=== PATIENT | female | born 1935 | race African-American/Black ===

== ENCOUNTER 2018-08-02 09:31 | Emergency (ER) | payer MEDICARE, OTHER ==
[~2018-08-02] VITALS: Ht 170.2 cm; Wt 77.1 kg
[~2018-08-02 09:31] MED LIST: AMOX250C PO; ASPI-482 PO; ATEN50TA PO; CHOL500021 PO; GLIM2TAB PO; Isosorbide Mononitrate PO; LISI-334 PO; NIFE60TA16 PO; OMEG300C PO; POTA20TA12 PO; PSYL0.5215 PO
[2018-08-02] MEDS ORDERED: IV NORMAL SALINE 1000ML BAG 1,000 ML IV SCH (10:02)
--- NOTE | 2018-08-02 10:20 | PHYS DOC ---
Past Medical History Past Medical History: A-Fib, Cancer, Hypertension, FL, Other Additional Past Medical Histor: BREAST CA,LYMPHEDEMA RIGHT ARM Past Surgical History: Pacemaker, Other Additional Past Surgical Histo: cardiac cath,R MASTECTOMY Additional Information: Denies smoking Alcohol Use: None Drug Use: None Adult General Chief Complaint Chief Complaint: near-syncope and cold symptums [facility] HPI Patient is a 83 year old female who brought in by EMS with complaining of near syncope. Patient states she has had cold symptoms for the last 5 days and this morning had a near-syncope. Patient complaining of cough, with subjective fever , hurting all over, nasal congestion, decrease of appetite and generalized weakness that gradually getting worse. Patient stated she had productive cough with clear sputum and shortness of breath. Patient states she almost passing out this morning without having chest pain, focal neuro deficit, blurred vision. Review of Systems Review of Systems Constitutional: Denies fever or chills [] Eyes: Denies change in visual acuity, redness, or eye pain [] HENT: Denies nasal congestion or sore throat [] Respiratory: Denies cough or shortness of breath [] Cardiovascular: No additional information not addressed in HPI [] GI: Denies abdominal pain, nausea, vomiting, bloody stools or diarrhea [] : Denies dysuria or hematuria [] Musculoskeletal: Denies back pain or joint pain [] Integument: Denies rash or skin lesions [] Neurologic: Denies headache, focal weakness or sensory changes [] Endocrine: Denies polyuria or polydipsia [] All other systems were reviewed and found to be within normal limits, except as documented in this note. Current Medications Current Medications Current Medications Medications (Trade) Dose Ordered Sig/Jeramy Start Time Stop Time Status Last Admin Dose Admin Sodium Chloride 1,000 ml @ 1,000 mls/hr Q1H 08/02/18 10:02 08/02/18 11:01 DC 08/02/18 10:25 1,000 MLS/HR Allergies Allergies Allergies Coded Allergies Type Severity Reaction Last Updated Verified No Known Drug Allergies 10/19/14 No Physical Exam Physical Exam Constitutional: Well developed, well nourished, no acute distress, non-toxic appearance. [] HENT: Normocephalic, atraumatic, bilateral external ears normal, oropharynx moist, no oral exudates, nose normal. [] Eyes: PERRLA, EOMI, conjunctiva normal, no discharge. [] Neck: Normal range of motion, no tenderness, supple, no stridor. [] Cardiovascular:Heart rate regular rhythm, no murmur [] Lungs & Thorax: Bilateral breath sounds clear to auscultation [] Abdomen: Bowel sounds normal, soft, no tenderness, no masses, no pulsatile masses. [] Skin: Warm, dry, no erythema, no rash. [] Back: No tenderness, no CVA tenderness. [] Extremities: No tenderness, no cyanosis, no clubbing, ROM intact, no edema. [] Neurologic: Alert and oriented X 3, normal motor function, normal sensory function, no focal deficits noted. [] Psychologic: Affect normal, judgement normal, mood normal. [] Current Patient Data Vital Signs Vital Signs Date Time Temp Pulse Resp B/P (MAP) Pulse Ox O2 Delivery O2 Flow Rate FiO2 08/02/18 12:24 60 147/68 (94) 95 Room Air 08/02/18 11:54 2.0 08/02/18 09:31 98.7 20 98.7 Lab Values Laboratory Tests Test 08/02/18 10:04 08/02/18 10:45 08/02/18 10:46 Influenza Type A Antigen Positive (NEGATIVE) Influenza Type B Antigen Negative (NEGATIVE) Troponin I Quantitative 0.023 ng/mL (0.000-0.055) White Blood Count 6.1 x10^3/uL (4.0-11.0) Red Blood Count 4.36 x10^6/uL (3.50-5.40) Hemoglobin 13.0 g/dL (12.0-15.5) Hematocrit 40.2 % (36.0-47.0) Mean Corpuscular Volume 92 fL (79-100) Mean Corpuscular Hemoglobin 30 pg (25-35) Mean Corpuscular Hemoglobin Concent 32 g/dL (31-37) Red Cell Distribution Width 14.5 % (11.5-14.5) Platelet Count 153 x10^3/uL (140-400) Neutrophils (%) (Auto) 86 % (31-73) H Lymphocytes (%) (Auto) 9 % (24-48) L Monocytes (%) (Auto) 4 % (0-9) Eosinophils (%) (Auto) 0 % (0-3) Basophils (%) (Auto) 0 % (0-3) Neutrophils # (Auto) 5.3 x10^3uL (1.8-7.7) Lymphocytes # (Auto) 0.6 x10^3/uL (1.0-4.8) L Monocytes # (Auto) 0.3 x10^3/uL (0.0-1.1) Eosinophils # (Auto) 0.0 x10^3/uL (0.0-0.7) Basophils # (Auto) 0.0 x10^3/uL (0.0-0.2) Segmented Neutrophils % 69 % (35-66) H Band Neutrophils % 19 % (0-9) H Lymphocytes % 9 % (24-48) L Monocytes % 3 % (0-10) Platelet Estimate Adequate (ADEQUATE) Prothrombin Time 12.3 SEC (11.7-14.0) Prothrombin Time INR 0.9 (0.8-1.1) Sodium Level 135 mmol/L (136-145) L Potassium Level 3.7 mmol/L (3.5-5.1) Chloride Level 99 mmol/L (98-107) Carbon Dioxide Level 25 mmol/L (21-32) Anion Gap 11 (6-14) Blood Urea Nitrogen 16 mg/dL (7-20) Creatinine 1.1 mg/dL (0.6-1.0) H Estimated GFR (Cockcroft-Gault) 57.5 BUN/Creatinine Ratio 15 (6-20) Glucose Level 150 mg/dL (70-99) H Lactic Acid Level 1.5 mmol/L (0.4-2.0) Calcium Level 10.0 mg/dL (8.5-10.1) Total Bilirubin 0.4 mg/dL (0.2-1.0) Aspartate Amino Transferase (AST) 45 U/L (15-37) H Alanine Aminotransferase (ALT) 31 U/L (14-59) Alkaline Phosphatase 102 U/L (46-116) Total Protein 8.9 g/dL (6.4-8.2) H Albumin 3.8 g/dL (3.4-5.0) Albumin/Globulin Ratio 0.7 (1.0-1.7) L Lipase 83 U/L (73-393) Laboratory Tests 08/02/18 10:46 Laboratory Tests 08/02/18 10:46 EKG EKG EKG interpreted by me. EKG at 1024 showed normal sinus rhythm at rate of 64, prolonged RI interval at 242, abnormal left axis deviation, nonspecific intraventricular block, poor R-wave progress in anteroseptal leads, no acute ST and T-wave abnormalities. Radiology/Procedures Radiology/Procedures [][address] [id number] [place] [address] IMAGING REPORT Signed PATIENT: MARILYN MATTHEW ACCOUNT: [id number] : 1935 LOCATION: ER AGE: 83 SEX: F EXAM STATUS: REG ER ORD. PHYSICIAN: GIORGIO KEARNS MD REASON: near syncope PROCEDURE: CHEST PA & LATERAL Examination: CHEST PA LATERAL History: CHEST PAIN, COUGH X 5 DAYS, SOA, MALAISE Comparison/Correlation: 09/29/2014 portable chest x-ray exam Findings: PA and lateral views of chest were obtained. Dual-lead left-sided pacemaker is present. Heart size and pulmonary vasculature are normal. No pneumothorax. No infiltrate or significant pleural effusion. Evaluation of the lateral view is limited due to patient rotation. Sclerotic lesion involving the proximal left humeral metaphysis is unchanged. Impression: No focal infiltrate. Electronically signed by: Fernando Gómez MD (08/02/2018 10:25 AM) [facility] DICTATED and SIGNED BY: FERNANDO GÓMEZ MD DATE: 08/02/[address] [place], [place] [id number] [place] [address] IMAGING REPORT Signed PATIENT: MARILYN MATTHEW ACCOUNT: [id number] : 1935 LOCATION: ER AGE: 83 SEX: F EXAM STATUS: REG ER ORD. PHYSICIAN: GIORGIO KEARNS MD REASON: near-syncope PROCEDURE: CT HEAD WO CONTRAST CT HEAD INDICATION: NEAR SYNCOPE COMPARISON: None Available. Exposure: One or more of the following individualized dose reduction techniques were utilized for this examination: 1. Automated exposure control 2. Adjustment of the mA and/or kV according to patient size 3. Use of iterative reconstruction technique TECHNIQUE: 5 mm contiguous axial images were obtained from the skull base to the vertex in both bone and soft tissue algorithm. FINDINGS: Mild bilateral periventricular white matter hypodensities likely chronic small vessel ischemic disease. No evidence of acute intracranial hemorrhage. No extra-axial fluid collections. No mass effect or midline shift. Ventricular size is appropriate. Basal cisterns are patent. No fractures identified.Price-white differentiation is preserved.Globes and orbits are within normal limits. Paranasal sinuses and mastoid air cells are clear. IMPRESSION: No acute intracranial findings. Electronically signed by: Derek Cornelius MD (08/02/2018 11:19 AM) [place] [id number] DICTATED and SIGNED BY: DEREK CORNELIUS MD DATE: 08/02/18 1117 Course & Med Decision Making Course & Med Decision Making Pertinent Labs and Imaging studies reviewed. (See chart for details) Evaluation of patient in ER showed 83-year-old patient with complaining of cold and flulike symptom for 5 days and near syncope today. Patient instructed 99.5 in ER without hypertension, tachycardia, focal neuro deficit or confusion. Patient treated with IV fluid. Labs showed positive for a without elevation of lactic acid or leukocytosis. UA did not show infiltration. Patient felt better after treatment and feels comfortable to go home. Plan discharge patient home to diagnose of influenza A and near syncope. Prescription for Tussionex was given and patient instructed to follow up with her primary care physician and return to ER if not getting better. Dragon Disclaimer Dragon Disclaimer This electronic medical record was generated, in whole or in part, using a voice recognition dictation system. Departure Departure Impression: Primary Impression: Influenza A Additional Impressions: Near syncope Generalized weakness Dehydration Disposition: 01 HOME, SELF-CARE (@1210) Condition: IMPROVED Referrals: RUSH GONZALES MD (PCP) Patient Instructions: Dehydration, Adult, Fever, Adult, Influenza A (H1N1), Near-Syncope Additional Instructions: Drink plenty of liquids Follow-up with your primary care physician in 2-3 days Return to ER if not getting better Scripts Hydrocodone/Chlorphen P-Stirex (Tussionex Pennkinetic Susp) 115 Ml Pinky.er.12h 5 ML PO BID for cough and congestion, #120 ML Prov: GIORGIO KEARNS MD 08/02/18 Problem Qualifiers GIROGIO KEARNS MD Aug 02, 2018 10:19
--- NOTE | 2018-08-02 10:30 | RAD ---
Examination: CHEST PA LATERAL History: CHEST PAIN, COUGH X 5 DAYS, SOA, MALAISE Comparison/Correlation: 09/29/2014 portable chest x-ray exam Findings: PA and lateral views of chest were obtained. Dual-lead left-sided pacemaker is present. Heart size and pulmonary vasculature are normal. No pneumothorax. No infiltrate or significant pleural effusion. Evaluation of the lateral view is limited due to patient rotation. Sclerotic lesion involving the proximal left humeral metaphysis is unchanged. Impression: No focal infiltrate. Electronically signed by: Fernando Lau MD (08/02/2018 10:25 AM) [facility]
[2018-08-02 10:57] LABS: INFLUENZA A PATIENT POSITIVE (NEGATIVE); INFLUENZA B PATIENT NEGATIVE (NEGATIVE)
[2018-08-02 11:01] LABS: BASO % 0 % (0-3); EOS % 0 % (0-3); HEMATOCRIT 40.2 % (36.0-47.0); LYMPH # 0.6 x10^3/uL (1.0-4.8); LYMPH % 9 % (24-48); MEAN CORPUSCULAR HEMOGLOBIN 30 pg (25-35); MEAN CORPUSCULAR HGB CONC 32 g/dL (31-37); MEAN CORPUSCULAR VOLUME 92 fL (79-100); MONO # 0.3 x10^3/uL (0.0-1.1); MONO % 4 % (0-9); NEUT # 5.3 x10^3uL (1.8-7.7); NEUT % 86 % (31-73); PLATELET COUNT 153 x10^3/uL (140-400); RED BLOOD COUNT 4.36 x10^6/uL (3.50-5.40); RED CELL DISTRIBUTION WIDTH 14.5 % (11.5-14.5); WHITE BLOOD COUNT 6.1 x10^3/uL (4.0-11.0)
[2018-08-02 11:10] LABS: CREATININE 1.1 mg/dL (0.6-1.0); GFR 57.5; POTASSIUM 3.7 mmol/L (3.5-5.1)
[2018-08-02 11:16] LABS: PROTHROMBIN TIME PATIENT 12.3 SEC (11.7-14.0)
--- NOTE | 2018-08-02 11:24 | RAD ---
CT HEAD INDICATION: NEAR SYNCOPE COMPARISON: None Available. Exposure: One or more of the following individualized dose reduction techniques were utilized for this examination: 1. Automated exposure control 2. Adjustment of the mA and/or kV according to patient size 3. Use of iterative reconstruction technique TECHNIQUE: 5 mm contiguous axial images were obtained from the skull base to the vertex in both bone and soft tissue algorithm. FINDINGS: Mild bilateral periventricular white matter hypodensities likely chronic small vessel ischemic disease. No evidence of acute intracranial hemorrhage. No extra-axial fluid collections. No mass effect or midline shift. Ventricular size is appropriate. Basal cisterns are patent. No fractures identified.Price-white differentiation is preserved.Globes and orbits are within normal limits. Paranasal sinuses and mastoid air cells are clear. IMPRESSION: No acute intracranial findings. Electronically signed by: Derek Cornelius MD (08/02/2018 11:19 AM) [place] [id number]
[2018-08-02 11:29] LABS: ALBUMIN 3.8 g/dL (3.4-5.0); ALBUMIN/GLOBULIN RATIO 0.7 (1.0-1.7); TOTAL BILIRUBIN 0.4 mg/dL (0.2-1.0); TOTAL PROTEIN 8.9 g/dL (6.4-8.2)
[2018-08-02] MEDS ORDERED: HYDR115S2 PO (12:14)
[2018-08-02 12:24] VITALS: BP 147/68
[2018-08-02 12:24] LABS: % BANDS 19 % (0-9); % LYMPHS 9 % (24-48); % MONOS 3 % (0-10); % SEGS 69 % (35-66); PLT ESTIMATE ADEQUATE (ADEQUATE)
--- NOTE | 2018-08-02 13:56 | EKG ---
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
== END 2018-08-02 13:44 | disposition home or self-care (01) ==
LOC: ER 09:31
DX: R55 Syncope and collapse (principal); E86.0 Dehydration; J10.1 Influenza due to other identified influenza virus with other respiratory manifestations; R53.1 Weakness; I10 Essential (primary) hypertension; I25.2 Old myocardial infarction; I48.91 Unspecified atrial fibrillation; Z95.0 Presence of cardiac pacemaker
CPT/HCPCS: 36415; 70450; 71046; 80053; 83605; 83690; 84484; 85007; 85025; 85610; 87040; 87804; 93005; 96360; 96361; 99284; J7030

== ENCOUNTER → 2018-11-25 | Outpatient (CLI) | payer MEDICARE, OTHER ==
[~2018-11-25] MED LIST changes: +HYDR115S2 PO
--- NOTE | 2018-11-25 13:56 | CARD ---
MR#: [id number] Date of Study: 11/25/2018 Ordering Physician: STACEY FERRER, Referring Physician: STACEY FERRER, Tech: Christine Dye CASSIE APPROVED REPORT EXAM: Two-dimensional and M-mode echocardiogram with Doppler and color Doppler. Other Information Quality : GoodHR: 60bpm Rhythm : Pacemaker INDICATION Murmur 2D DIMENSIONS RVDd3.0 (2.9-3.5cm)Left Atrium(2D)3.6 (1.6-4.0cm) IVSd1.6 (0.7-1.1cm)Aortic Root(2D)2.9 (2.0-3.7cm) LVDd4.3 (3.9-5.9cm)LVOT Diameter2.1 (1.8-2.4cm) PWd1.0 (0.7-1.1cm)LVDs2.7 (2.5-4.0cm) FS (%) 38.3 %SV57.4 ml LVEF(%)68.9 (>50%) M-Mode DIMENSIONS Left Atrium(MM)4.06 (2.5-4.0cm)Aortic Root3.02 (2.2-3.7cm) Aortic Valve AoV Peak Curt.236.4cm/sAoV VTI55.2cm AO Peak GR.22.4mmHgLVOT Peak Curt.93.2cm/s AO Mean GR.13mmHgAVA (VMAX)1.35cm2 JOSE (VTI)1.10ac1ZA P 1/2 Htiq183kp Mitral Valve MV E Xinsaqgo19.1cm/sMV DECEL XDZV826yw MV A Wctiraim995.9cm/sE/A Ratio0.5 MV A Tgpugpmu147hz Pulmonary Valve PV Peak Fgojebhu749.9cm/s Tricuspid Valve TR P. Cwebtsjk693nf/sRAP SVYAHXDQ7ycGh TR Peak Gr.13szTlXSRK91whWd Pulmonary Vein S1 Bwyztftd30.2cm/sD2 Phauhyrd32.0cm/s PVa cqgduhkn46zpvq LEFT VENTRICLE The left ventricle is normal size. There is moderate concentric left ventricular hypertrophy. The lef t ventricular systolic function is normal and the ejection fraction is within normal range. The Eject ion Fraction is 65-70%. There is normal LV segmental wall motion. Transmitral Doppler flow pattern is Grade I-abnormal relaxation pattern. RIGHT VENTRICLE The right ventricle is normal size. There is normal right ventricular wall thickness. The right ventr icular systolic function is normal. Pacer wire noted in RV/RA. ATRIA The left atrium size is normal. The right atrium size is normal. The interatrial septum is intact wit h no evidence for an atrial septal defect or patent foramen ovale as noted on 2-D or Doppler imaging. AORTIC VALVE The aortic valve is moderately calcified. The aortic valve is trileaflet. Doppler and Color Flow reve aled mild aortic regurgitation. There is mild valvular aortic stenosis. Calculated aortic valve area is 1.4 cm2 with maximum pressure gradient of 22 mmHg and mean pressure gradient of 13 mmHg. MITRAL VALVE Mitral annular calcification is mild to moderate. There is no evidence of mitral valve prolapse. Ther e is no mitral valve stenosis. Doppler and Color-flow revealed trace mitral regurgitation. TRICUSPID VALVE The tricuspid valve is normal in structure and function. Doppler and Color Flow revealed mild tricusp id regurgitation. There is mild pulmonary hypertension. The PA pressure was estimated at 33 mmHg. The re is no tricuspid valve prolapse or vegetation. There is no tricuspid valve stenosis. PULMONIC VALVE Doppler and Color Flow revealed mild pulmonic valvular regurgitation. There is no pulmonic valvular s tenosis. GREAT VESSELS The aortic root is normal in size. The ascending aorta is normal in size. The IVC is normal in size a nd collapses >50% with inspiration. PERICARDIAL EFFUSION There is no evidence of significant pericardial effusion. Critical Notification Critical Value: No <Conclusion> The left ventricular systolic function is normal and the ejection fraction is within normal range. Th e Ejection Fraction is 65-70%. There is moderate concentric left ventricular hypertrophy. There is normal LV segmental wall motion. Pacer wire noted in RV/RA. There is mild valvular aortic stenosis. Calculated aortic valve area is 1.4 cm2 with maximum pressur e gradient of 22 mmHg and mean pressure gradient of 13 mmHg. Doppler and Color Flow revealed mild aortic regurgitation. Signed by : Hugo Mayer, Electronically Approved : 11/25/2018 13:55:58
== END | disposition home or self-care (01) ==
LOC: ECHO 12:43
PROVIDERS: ATTEND Internal Medicine Cardiovascular Disease
DX: I08.8 Other rheumatic multiple valve diseases (principal); I27.20 Pulmonary hypertension, unspecified; I11.9 Hypertensive heart disease without heart failure
CPT/HCPCS: 93306

== ENCOUNTER → 2019-08-15 | Outpatient (CLI) | payer MEDICARE, OTHER ==
[~2019-08-15] MED LIST changes: -NIFE60TA16 PO; +NIFE60TA90 PO; +REGADENOSON 0.4 MG/5 ML DISP.SYRIN. IV ONE
--- NOTE | 2019-08-15 13:15 | CARD ---
MR#: [id number] Date of Study: 08/15/2019 Ordering Physician: STACEY FERRER, Referring Physician: STACEY FERRER, Tech: Ana Paula Emerson APPROVED REPORT EXAM: Two-dimensional and M-mode echocardiogram with Doppler and color Doppler. Other Information Quality : GoodHR: 60bpm INDICATION Mitral Valve Disease Surgery/Intervention Pacemaker: Date: 2009 RISK FACTORS Hypertension 2D DIMENSIONS RVDd3.1 (2.9-3.5cm)Left Atrium(2D)3.8 (1.6-4.0cm) IVSd1.3 (0.7-1.1cm)Aortic Root(2D)3.2 (2.0-3.7cm) LVDd4.1 (3.9-5.9cm)LVOT Diameter2.0 (1.8-2.4cm) PWd1.2 (0.7-1.1cm)LVDs2.9 (2.5-4.0cm) FS (%) 29.7 %SV42.5 ml LVEF(%)57.3 (>50%) Aortic Valve AoV Peak Curt.271.3cm/sAoV VTI61.3cm AO Peak GR.29.4mmHgLVOT Peak Curt.99.0cm/s LVOT VTI 23.14cmAO Mean GR.17mmHg JOSE (VMAX)0.16vr4MCZ (VTI)1.17cm2 AI P 1/2 Ivmq588rs Mitral Valve MV E Gztzdfup81.0cm/sMV E Peak Gr.114mmHg MV DECEL FIDA047vnZI A Bthuajib363.2cm/s MV E Mean Gr.2mmHgMV AYP00rm E/A Ratio0.6MVA (PHT)3.39cm2 TDI E/Lateral E'12.4E/Medial E'16.7 Pulmonary Valve PV Peak Qczzimrd32.0cm/sPV Peak Grad.4mmHg Tricuspid Valve TR P. Fmzzrmgx080yz/sRAP ZKUQJWAD2vtCh TR Peak Gr.70jhBqAUAN30xhFg Pulmonary Vein S1 Ucmomksg40.5cm/sD2 Rllqajzp10.4cm/s PVa jjwsoxdx227rzud LEFT VENTRICLE The left ventricle is normal size. There is moderate concentric left ventricular hypertrophy. The lef t ventricular systolic function is normal and the ejection fraction is within normal range. The Eject ion Fraction is 50-55%. There is normal LV segmental wall motion. Transmitral Doppler flow pattern is Grade I-abnormal relaxation pattern. RIGHT VENTRICLE The right ventricle is normal size. There is normal right ventricular wall thickness. The right ventr icular systolic function is normal. ATRIA The left atrium size is normal. The right atrium size is normal. The atrial septum is aneurysmal. AORTIC VALVE The aortic valve is calcified and displays decreased opening. Doppler and Color Flow revealed mild ao rtic regurgitation. Calculated aortic valve area is 1.17 cm2 with maximum pressure gradient of 33 mmH g and mean pressure gradient of 18 mmHg. MITRAL VALVE The mitral valve is thickened but opens well. There is no evidence of mitral valve prolapse. There is no mitral valve stenosis. Doppler and Color-flow revealed trace to mild mitral regurgitation. TRICUSPID VALVE The tricuspid valve is normal in structure and function. Doppler and Color Flow revealed mild tricusp id regurgitation with an estimated PAP of 38 mmHg. There is no tricuspid valve stenosis. PULMONIC VALVE The pulmonic valve is not well visualized. Doppler and Color Flow revealed mild pulmonic valvular reg urgitation. There is no pulmonic valvular stenosis. GREAT VESSELS The aortic root is normal in size. The ascending aorta is normal in size. The IVC is normal in size a nd collapses >50% with inspiration. PERICARDIAL EFFUSION There is no evidence of significant pericardial effusion. Critical Notification Critical Value: No <Conclusion> The left ventricular systolic function is normal and the ejection fraction is within normal range. Th e Ejection Fraction is 50-55%. There is normal LV segmental wall motion. There is moderate concentric left ventricular hypertrophy. Calculated aortic valve area is 1.17 cm2 with maximum pressure gradient of 33 mmHg and mean pressure gradient of 18 mmHg. Doppler and Color Flow revealed mild aortic regurgitation. Doppler and Color Flow revealed mild tricuspid regurgitation with an estimated PAP of 38 mmHg. Signed by : Hugo Mayer, Electronically Approved : 08/15/2019 13:14:54
--- NOTE | 2019-08-15 14:06 | RAD ---
MR#: [id number] Date of Study: 08/15/2019 Ordering Physician: STACEY BOSS, Referring Physician: JULIAN GUEVARA Tech: RT Alexx StokesR) (N) APPROVED REPORT Test Type: Pharmacological Stress Nurse/Tech: Blessing Rivera RN Test Indications: CAD Cardiac History: MIs x3, 1 stent, Heart murmur, HTN, PPM, See EMR. Medications: ASA 81mg, See EMR. Medical History: Breast CA w/Chemo, See EMR. Resting ECG: Paced Resting Heart Rate: 63 bpm Resting Blood Pressure: 164/74mmHg Pretest Chest Pain: No chest pain Nurse/Tech Notes Lungs CTA, Heart tones regular. Consent: The procedure was explained to the patient in lay terms. Informed consent was witnessed. Chase eout was entered into Tasted Menu. History and Stress Test performed by RT Rahel (R) (N) Pharm. Details Pharmacologic stress testing was performed using 0.4mg per 5ml of regadenoson given intravenously ove r 7-10 seconds. Stress Symptoms No chest pain or symptoms. POST EXERCISE Reason for Termination: Infusion complete Max HR: 106 bpm Max Blood Pressure: 158/67mmHg Blood Pressure response to exercise: Normal blood pressure response during stress. Heart Rate response to exercise: WNL Chest Pain: No. Arrhythmia: No. ST Change: No. INTERPRETATION Stress EKG Conclusion: The resting EKG shows an atrially paced rhythm. Stress EKG shows no significant changes from baseline. No EKG evidence of stress-induced ischemia. Imaging Protocol IMAGE PROTOCOL: Rest Tc-99m/stress Tc-99m 1 day Rest: Stress: Viability: Radiopharm.Tc99m SidczxjklOf35i Sestamibi Dose10.8mCi 31.5mCi Duration 15min. 15min. Img Date 08/15/2019 08/15/2019 Img Time 13 13 Inj-Img Uspq79cup. 60min. Rest Admin Site:IV - Left ForearmAdministrator:RT Rahel (R)(N) Stress Admin Site: IV - Left ForearmAdministrator: Radha Medina, RT (R)(N) STRESS DATA End Diast. Vol.76.0mlAv. Heart Rate64.0bpm End Syst. Vol.20.0mlCO Index BSA0.0L/min Myocardial Nnjg172.0gEject. Rjojpgms01.0% Stress Rates Pk. Fill Rate3.29EDV/secLVtime Pk. Fill 255.95msec Pk. Empty Rate3.50ESV/secLVtime Pk. Sjjog025.74msec 3 Pk. Fill0.85EDV/sec Stress Scores Regional WT1.00Summed WT7.00 Regional WM0.00Summed WM0.00 LV Perfusion The stress scans showed no significant defects. The rest scans showed no significant defects. Nuclear imaging showed no reversible ischemia or infarct. Wall Motion Ventricular systolic function is normal with an ejection fraction of greater than 70%. LV Perf. Quant 17 Seg. SSS3.00 17 Seg. SRS1.00 17 Seg. SDS2.00 Stress Defect Extent (% LAD)0.00Rest Defect Extent (% LAD)0.00Rev. Defect Extent (% LAD)0.00 Stress Defect Extent (% LCX) 17.50Rest Defect Extent (% LCX)3.80Rev. Defect Extent (% LCX)8.80 Stress Defect Extent (% RCA)0.00Rest Defect Extent (% RCA)0.00Rev. Defect Extent (% RCA)0.00 Stress Defect Extent (% MAIXMO)4.80Rest Defect Extent (% MAXIMO)1.30Rev. Defect Extent (% MAXIMO)2.60 Conclusion 1. Paced rhythm. 2. Nuclear imaging shows no reversible ischemia or infarct. 3. Left ventricular systolic function is normal with an ejection fraction of greater than 70%. 4. Low risk Lexiscan nuclear stress test. Signed by : Stacey Boss MD Electronically Approved : 08/15/2019 14:06:12
== END | disposition home or self-care (01) ==
LOC: ECHO 08:22
PROVIDERS: ATTEND Internal Medicine Cardiovascular Disease
DX: I08.8 Other rheumatic multiple valve diseases (principal); I25.10 Atherosclerotic heart disease of native coronary artery without angina pectoris
CPT/HCPCS: 78452; 93017; 93306; A9500; J2785

== ENCOUNTER → 2020-04-30 | Outpatient (CLI) | payer MEDICARE, OTHER ==
[2020-04-30] VITALS (10 sets, daily range): BP systolic 153–179; BP diastolic 68–77
[~2020-04-30] VITALS: Ht 170.2 cm; Wt 59.0 kg
[~2020-04-30] MED LIST changes: +BACITRACIN 50,000 UNIT in IV NORMAL SALINE 250ML 250 ML IRR ONE; +LIDOCAINE 2%/EPI 1:100,000 20 ML VIAL. IJ ONE; +LIDOCAINE 2%/EPI 1:100,000 20 ML VIAL. ONE; +MIDAZOLAM HCL/PF 2 MG/2 ML VIAL. IV ONE; +MIDAZOLAM HCL/PF 2 MG/2 ML VIAL. ONE; +NO ANTICOAGULANT THERAPY. MC PRN; -REGADENOSON 0.4 MG/5 ML DISP.SYRIN. IV ONE; +SIMV20TA18 PO; +ceFAZolin SODIUM IV Push 1 GM VIAL. IVP ONE; +fentaNYL PF VIAL 100 MCG/2 ML VIAL IV ONE; +fentaNYL PF VIAL 100 MCG/2 ML VIAL ONE
[2020-04-30 08:11] LABS: HEMATOCRIT 37.9 % (36.0-47.0); HEMOGLOBIN 12.3 g/dL (12.0-15.5); RED BLOOD COUNT 4.17 x10^6/uL (3.50-5.40); RED CELL DISTRIBUTION WIDTH 14.6 % (11.5-14.5)
[2020-04-30 08:26] LABS: PROTHROMBIN TIME PATIENT 12.5 SEC (11.7-14.0)
--- NOTE | 2020-04-30 09:02 | PDOC ---
MODERATE SEDATION ASSESSMENT RISKS/ALTERNATIVES Risks/Alternatives Risks and alternatives of this type of sedation and procedure discussed with: RISK/ALTERNATIVES: Patient H & P ON CHART H & P H & P on chart and reviewed for co-morbid conditions and appropriate labs. H&P ON CHART: Yes STATUS PREG STATUS ASSESSED: N/A MEDS/ALLERGIES REVIEWED Meds/Allergies Reviewed Medications and Allergies including time and route of recently administered narcotics and sedatives. MEDS/ALLERGIES REVIEWED: Yes ASA RATING ASA RATING: II AIRWAY ASSESSMENT Airway Assessment Airway patency, oral function limitations, presence of caps, crowns, dentures, partials, and ability to extend neck assessed. AIRWAY ASSESSMENT: Yes MALLAMPATI SCORE MALLAMPATI SCORE: II PRE-SEDATION ASSESSMENT PRE-SEDATION ASSESSMENT: Yes CHAGO EMERSON MD Apr 30, 2020 09:02
--- NOTE | 2020-04-30 09:15 | PDOC1 ---
History and Physical Visit Information Date of Admission: 04/30/2020 History of Present Illness History of Present Illness Laura David is a pleasant 84-year-old woman who presents to the hospital today for a planned generator change due to BONILLA of her [employer] pacemaker (dual- chamber). The patient currently denies any chest pain, dyspnea, orthopnea or PND. No syncope or palpitations. Cardiac Risk Factors Comments 1. Hypertension 2. Dyslipidemia 3. Diabetes type 2 4. Coronary artery disease status post PCI to left circumflex 5. Mild mitral valve regurgitation 6. Mild aortic stenosis Past Surgical History Comments Prior pacemaker and PCI Current Medications Current Medications Current Medications Bacitracin 99877 unit/Sodium Chloride 250 ml @ 0 mls/hr 1X ONCE IRR ; Start 04/30/20 at 08:30; Stop 04/30/20 at 08:34; Status DC Cefazolin Sodium (Ancef) 1 gm 1X ONCE IVP ; Start 04/30/20 at 08:30; Stop 04/30/20 at 08:34; Status DC Cefazolin Sodium (Ancef) 1 gm STK-MED ONCE IVP ; Start 04/30/20 at 08:50; Stop 04/30/20 at 08:50; Status DC Fentanyl Citrate (Fentanyl 2ml Vial) 100 mcg 1X ONCE IV ; Start 04/30/20 at 08:30; Stop 04/30/20 at 08:34; Status DC Fentanyl Citrate (Fentanyl 2ml Vial) 100 mcg STK-MED ONCE .ROUTE ; Start 04/30/20 at 08:49; Stop 04/30/20 at 08:49; Status DC Lidocaine/ Epinephrine (LIDOCAINE 2%-EPI 1:100,000 multi-dose) 20 ml 1X ONCE IJ ; Start 04/30/20 at 08:30; Stop 04/30/20 at 08:34; Status DC Lidocaine/ Epinephrine (LIDOCAINE 2%-EPI 1:100,000 multi-dose) 20 ml STK-MED ONCE .ROUTE ; Start 04/30/20 at 08:55; Stop 04/30/20 at 08:56; Status DC Midazolam HCl (Versed) 2 mg 1X ONCE IV ; Start 04/30/20 at 08:30; Stop 04/30/20 at 08:34; Status DC Midazolam HCl (Versed) 2 mg STK-MED ONCE .ROUTE ; Start 04/30/20 at 08:48; Stop 04/30/20 at 08:49; Status DC Allergies Allergies Allergies Coded Allergies Type Severity Reaction Last Updated Verified No Known Drug Allergies 10/19/14 No Social History Comments No alcohol, tobacco or illicit drug use ROS Review of System Negative for 10 out of 14 systems reviewed unless otherwise mentioned above in HPI Physical Exam General: Alert, Oriented X3, No acute distress HEENT: Atraumatic Lungs: Clear to auscultation Heart: Regular rate CHEST: Clear to auscultation Abdomen: Normal bowel sounds Extremities: No clubbing Skin: No rashes Neuro: Normal gait Vitals VITALS Vital Signs Date Time Temp Pulse Resp B/P (MAP) Pulse Ox O2 Delivery O2 Flow Rate FiO2 04/30/20 08:41 Room Air 04/30/20 08:31 98.8 55 16 179/72 (107) 97 98.8 Labs Labs Laboratory Tests Test 04/30/20 07:30 04/30/20 08:05 SARS-CoV-2 Antigen (Rapid) Negative (NEGATIVE) White Blood Count 6.0 x10^3/uL (4.0-11.0) Red Blood Count 4.17 x10^6/uL (3.50-5.40) Hemoglobin 12.3 g/dL (12.0-15.5) Hematocrit 37.9 % (36.0-47.0) Mean Corpuscular Volume 91 fL (79-100) Mean Corpuscular Hemoglobin 30 pg (25-35) Mean Corpuscular Hemoglobin Concent 32 g/dL (31-37) Red Cell Distribution Width 14.6 % (11.5-14.5) Platelet Count 196 x10^3/uL (140-400) Prothrombin Time 12.5 SEC (11.7-14.0) Prothromb Time International Ratio 1.0 (0.8-1.1) Laboratory Tests Test 04/30/20 07:30 04/30/20 08:05 SARS-CoV-2 Antigen (Rapid) Negative (NEGATIVE) White Blood Count 6.0 x10^3/uL (4.0-11.0) Red Blood Count 4.17 x10^6/uL (3.50-5.40) Hemoglobin 12.3 g/dL (12.0-15.5) Hematocrit 37.9 % (36.0-47.0) Mean Corpuscular Volume 91 fL (79-100) Mean Corpuscular Hemoglobin 30 pg (25-35) Mean Corpuscular Hemoglobin Concent 32 g/dL (31-37) Red Cell Distribution Width 14.6 % (11.5-14.5) Platelet Count 196 x10^3/uL (140-400) Prothrombin Time 12.5 SEC (11.7-14.0) Prothromb Time International Ratio 1.0 (0.8-1.1) ECG Comments Sinus rhythm with intermittent pacing VTE Prophylaxis Ordered VTE Prophylaxis Devices: No VTE Pharmacological Prophylaxi: No Assessment/Plan Assessment/Plan 1. Sick sinus syndrome status post dual-chamber pacemaker currently at elective replacement indicator, plan for battery generator change. Justicifation of Admission Dx: Justifications for Admission: Justification of Admission Dx: N/A CHAGO EMERSON MD Apr 30, 2020 09:15
--- NOTE | 2020-04-30 09:56 | CARD ---
MR#: [id number] Date of Study: 04/30/2020 Ordering Physician: CHAGO EMERSON, Referring Physician: CHAGO EMERSON, Tech: APPROVED REPORT HISTORY The Patient is a 84 year-old female with a history of SSS PROCEDURES fl time: 0.0 mins dose: 0.056 gycm2 moderate sedation: 38 MINS INDICATIONS Battery depletion, elective replacement indicator triggered IMPLANTED DEVICES After appropriate informed consent the patient was brought to the catheterization laboratory in the [facility] chest was prepped and draped in usual sterile fashion. Next, 30 mL of 1% lidocaine was injected into the infraclavicular space over the site of the previous pacemaker battery. A horizontal incisio n was made in the infraclavicular space of approximately 1.5 inches. Using blunt dissection and caut brittanie the previous generator was removed and the leads were then attached to a new [employer] 8 DR T dual-chamber battery with serial #[id number]. The atrial and ventricular leads were appropriately f unctioning. Atrial lead is a Isoflex model #1944 with serial number [id number] implanted in July 2010, the right ventricular lead is a Isoflex model 1948 with serial number [id number] implanted in 18 05. At case completion the P wave was not detected due to paced rhythm at 30 beats a minute with a thresh old of 0.7 V at 0.4 ms and impedance of 410 ohms. The R wave amplitude was 10 mV with a threshold of 0.8 V at 0.4 ms with an impedance of 430 ohms. At case completion the mode settings were as follows: DDDR, 601 20, mode switch rate 160 bpm Paced AV delay 200 ms and sensed AV delay at 180 ms. CONCLUSION 1. Successful generator change for BONILLA Signed by : Chago Emerson, Electronically Approved : 04/30/2020 09:56:39
--- NOTE | 2020-04-30 12:25 | NUR ---
Discharge Note: MARILYN MATTHEW [facility] Discharge instructions and discharge home medications reviewed with Patient and son and a copy given. All questions have been answered and understanding verbalized. The following instructions and handouts were given: Moderate sedation and gen change. Discontinued lines and drains: Left wrist IV dc'd and tip intact. Patient discharged to home with sonMarlyIron via personal vehicle.
== END | disposition home or self-care (01) ==
LOC: CCL 07:00
PROVIDERS: ATTEND Internal Medicine Cardiovascular Disease
DX: Z45.010 Encounter for checking and testing of cardiac pacemaker pulse generator [battery] (principal); I44.30 Unspecified atrioventricular block; I49.5 Sick sinus syndrome; I25.10 Atherosclerotic heart disease of native coronary artery without angina pectoris; M19.90 Unspecified osteoarthritis, unspecified site; I10 Essential (primary) hypertension; E78.00 Pure hypercholesterolemia, unspecified; K21.9 Gastro-esophageal reflux disease without esophagitis; M81.0 Age-related osteoporosis without current pathological fracture; Z85.3 Personal history of malignant neoplasm of breast; Z98.51 Tubal ligation status; Z98.890 Other specified postprocedural states; Z79.82 Long term (current) use of aspirin; Z79.899 Other long term (current) drug therapy; Z20.828 Contact with and (suspected) exposure to other viral communicable diseases
CPT/HCPCS: 33228; 36415; 85027; 85610; 87426; 99152; 99153; C1785; J0690; J2250; J3010; J3490; J7050; U0003; 33213; 92975; J7030

== ENCOUNTER 2020-10-02 10:21 | Observation (INO) | payer MEDICARE, OTHER ==
[~2020-10-02] VITALS: Ht 170.2 cm; Wt 77.5 kg
[~2020-10-02 10:21] MED LIST changes: -BACITRACIN 50,000 UNIT in IV NORMAL SALINE 250ML 250 ML IRR ONE; -LIDOCAINE 2%/EPI 1:100,000 20 ML VIAL. IJ ONE; -LIDOCAINE 2%/EPI 1:100,000 20 ML VIAL. ONE; -LISI-334 PO; +LISI20TA18 PO; -MIDAZOLAM HCL/PF 2 MG/2 ML VIAL. IV ONE; -MIDAZOLAM HCL/PF 2 MG/2 ML VIAL. ONE; -NO ANTICOAGULANT THERAPY. MC PRN; -ceFAZolin SODIUM IV Push 1 GM VIAL. IVP ONE; -fentaNYL PF VIAL 100 MCG/2 ML VIAL IV ONE; -fentaNYL PF VIAL 100 MCG/2 ML VIAL ONE
[2020-10-02 10:48] LABS: BASO # 0.1 x10^3/uL (0.0-0.2); BASO % 1 % (0-3); EOS # 0.2 x10^3/uL (0.0-0.7); EOS % 3 % (0-3); HEMATOCRIT 35.6 % (36.0-47.0); HEMOGLOBIN 11.7 g/dL (12.0-15.5); LYMPH # 1.6 x10^3/uL (1.0-4.8); LYMPH % 27 % (24-48); MEAN CORPUSCULAR HEMOGLOBIN 30 pg (25-35); MEAN CORPUSCULAR HGB CONC 33 g/dL (31-37); MEAN CORPUSCULAR VOLUME 91 fL (79-100); MONO # 0.4 x10^3/uL (0.0-1.1); MONO % 7 % (0-9); NEUT # 3.6 x10^3/uL (1.8-7.7); NEUT % 61 % (31-73); PLATELET COUNT 172 x10^3/uL (140-400); RED BLOOD COUNT 3.92 x10^6/uL (3.50-5.40); RED CELL DISTRIBUTION WIDTH 14.9 % (11.5-14.5); WHITE BLOOD COUNT 5.9 x10^3/uL (4.0-11.0)
--- NOTE | 2020-10-02 10:55 | RAD ---
Exam Date: 10/02/2020 10:43 AM XR CHEST 1V Indication: Reason: chest pain / Spl. Instructions: / History: Comparison: August 02, 2018 FINDINGS/ IMPRESSION: The aorta is calcified. Cardiac pacemaker remains in place. The cardiac silhouette and pulmonary vasculature are within normal limits. There is no focal consolidation, pleural effusion or pneumothorax. Electronically signed by: Mika Nunn MD (10/02/2020 10:53 AM) [id number]
--- NOTE | 2020-10-02 10:58 | EKG ---
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
[2020-10-02 11:05] LABS: CALCIUM 9.4 mg/dL (8.5-10.1); CREATININE 0.9 mg/dL (0.6-1.0); GFR 72.2; POTASSIUM 4.1 mmol/L (3.5-5.1)
[2020-10-02 11:10] LABS: ALBUMIN 3.8 g/dL (3.4-5.0); TOTAL BILIRUBIN 0.4 mg/dL (0.2-1.0); TOTAL PROTEIN 7.5 g/dL (6.4-8.2)
[2020-10-02] MEDS ORDERED: hydrALAZINE 20 MG/ML VIAL. IVP ONE ×2 (13:30→14:45)
--- NOTE | 2020-10-02 13:31 | PHYS DOC ---
Past Medical History Past Medical History: A-Fib, Cancer, Hypertension, NE, Other Additional Past Medical Histor: BREAST CA,LYMPHEDEMA RIGHT ARM Past Surgical History: Pacemaker, Other Additional Past Surgical Histo: cardiac cath,R MASTECTOMY Smoking Status: Never Smoker Alcohol Use: None Drug Use: None General Adult EDM: Chief Complaint: CHEST PAIN HPI: HPI: Patient is a 85 year old female who presented to ER today due to left-sided chest pain started earlier today, chest pain lasted for 10 minutes. Patient took her aspirin at home, came in for evaluation. By time she got here her chest pain improved. Patient denies any cough, no fever, no nausea vomiting. Patient has history of pacemaker, had a pacemaker replaced recently. Patient denies any abdominal pain, no nausea vomiting. Patient has history of hypertension, patient claimed that she took all her blood pressure medication this morning before coming here. Review of Systems: Review of Systems: Constitutional: Denies fever or chills. [] Eyes: Denies change in visual acuity. [] HENT: Denies nasal congestion or sore throat. [] Respiratory: Denies cough or shortness of breath. [] Cardiovascular: Positive for chest pain, no edema GI: Denies abdominal pain, nausea, vomiting, bloody stools or diarrhea. [] : Denies dysuria. [] Musculoskeletal: Denies back pain or joint pain. [] Integument: Denies rash. [] Neurologic: Denies headache, focal weakness or sensory changes. [] Endocrine: Denies polyuria or polydipsia. [] Lymphatic: Denies swollen glands. [] Psychiatric: Denies depression or anxiety. [] Heart Score: C/O Chest Pain: Yes HEART Score for Chest Pain: HEART Score for Chest Pain Response (Comments) Value History Moderately Suspicious 1 ECG Nonspecific Repolarizatio 1 Age > 65 2 Risk Factors >3 Risk Factors or Hx CAD 2 Troponin < Normal Limit 0 Total 6 Risk Factors: Risk Factors: DM, Current or recent (<one month) smoker, HTN, HLP, family history of CAD, obesity. Risk Scores: Score 0 - 3: 2.5% MACE over next 6 weeks - Discharge Home Score 4 - 6: 20.3% MACE over next 6 weeks - Admit for Clinical Observation Score 7 - 10: 72.7% MACE over next 6 weeks - Early Invasive Strategies Allergies: Allergies: Allergies Coded Allergies Type Severity Reaction Last Updated Verified No Known Drug Allergies 10/19/14 No Physical Exam: PE: Constitutional: Well developed, well nourished, no acute distress, non-toxic appearance. [] HENT: Normocephalic, atraumatic, bilateral external ears normal, oropharynx moist, no oral exudates, nose normal. [] Eyes: PERRLA, EOMI, conjunctiva normal, no discharge. [] Neck: Normal range of motion, no tenderness, supple, no stridor. [] Cardiovascular:Heart rate regular rhythm, loud systolic murmur on the right side consistent with aortic stenosis Lungs & Thorax: Bilateral breath sounds clear to auscultation [] Abdomen: Bowel sounds normal, soft, no tenderness, no masses, no pulsatile masses. [] Skin: Warm, dry, no erythema, no rash. [] Back: No tenderness, no CVA tenderness. [] Extremities: No tenderness, no cyanosis, no clubbing, ROM intact, no edema. [] Neurologic: Alert and oriented X 3, normal motor function, normal sensory function, no focal deficits noted. [] Psychologic: Affect normal, judgement normal, mood normal. [] Current Patient Data: Labs: Laboratory Tests Test 10/02/20 10:40 White Blood Count 5.9 x10^3/uL (4.0-11.0) Red Blood Count 3.92 x10^6/uL (3.50-5.40) Hemoglobin 11.7 g/dL (12.0-15.5) L Hematocrit 35.6 % (36.0-47.0) L Mean Corpuscular Volume 91 fL (79-100) Mean Corpuscular Hemoglobin 30 pg (25-35) Mean Corpuscular Hemoglobin Concent 33 g/dL (31-37) Red Cell Distribution Width 14.9 % (11.5-14.5) H Platelet Count 172 x10^3/uL (140-400) Neutrophils (%) (Auto) 61 % (31-73) Lymphocytes (%) (Auto) 27 % (24-48) Monocytes (%) (Auto) 7 % (0-9) Eosinophils (%) (Auto) 3 % (0-3) Basophils (%) (Auto) 1 % (0-3) Neutrophils # (Auto) 3.6 x10^3/uL (1.8-7.7) Lymphocytes # (Auto) 1.6 x10^3/uL (1.0-4.8) Monocytes # (Auto) 0.4 x10^3/uL (0.0-1.1) Eosinophils # (Auto) 0.2 x10^3/uL (0.0-0.7) Basophils # (Auto) 0.1 x10^3/uL (0.0-0.2) Sodium Level 137 mmol/L (136-145) Potassium Level 4.1 mmol/L (3.5-5.1) Chloride Level 101 mmol/L (98-107) Carbon Dioxide Level 25 mmol/L (21-32) Anion Gap 11 (6-14) Blood Urea Nitrogen 16 mg/dL (7-20) Creatinine 0.9 mg/dL (0.6-1.0) Estimated GFR (Cockcroft-Gault) 72.2 BUN/Creatinine Ratio 18 (6-20) Glucose Level 212 mg/dL (70-99) H Calcium Level 9.4 mg/dL (8.5-10.1) Magnesium Level 2.0 mg/dL (1.8-2.4) Total Bilirubin 0.4 mg/dL (0.2-1.0) Aspartate Amino Transferase (AST) 23 U/L (15-37) Alanine Aminotransferase (ALT) 18 U/L (14-59) Alkaline Phosphatase 101 U/L (46-116) Troponin I Quantitative < 0.017 ng/mL (0.000-0.055) DF-Rna-D-Type Natriuretic Peptide 481 pg/mL (0-449) H Total Protein 7.5 g/dL (6.4-8.2) Albumin 3.8 g/dL (3.4-5.0) Albumin/Globulin Ratio 1.0 (1.0-1.7) Lipase 67 U/L (73-393) L Laboratory Tests 10/02/20 10:40 Laboratory Tests 10/02/20 10:40 Vital Signs: Vital Signs Date Time Temp Pulse Resp B/P (MAP) Pulse Ox O2 Delivery O2 Flow Rate FiO2 10/02/20 10:26 98.2 60 16 192/88 (122) 98 Room Air 98.2 EKG: EKG: EKG was done at 10.7, heart rate of 60 bpm, paced rhythm. No ST segment elevation. Radiology/Procedures: Radiology/Procedures: [][facility] [address] [place] [address] IMAGING REPORT Signed PATIENT: MARILYN MATTHEW ACCOUNT: [id number] : 1935 LOCATION: ER AGE: 85 SEX: F EXAM STATUS: REG ER ORD. PHYSICIAN: MADDISON CANO DO REASON: chest pain PROCEDURE: PORTABLE CHEST 1V Exam Date: 10/02/2020 10:43 AM XR CHEST 1V Indication: Reason: chest pain / Spl. Instructions: / History: Comparison: August 02, 2018 FINDINGS/ IMPRESSION: The aorta is calcified. Cardiac pacemaker remains in place. The cardiac silhouette and pulmonary vasculature are within normal limits. There is no focal consolidation, pleural effusion or pneumothorax. Electronically signed by: Long Nunn MD (10/02/2020 10:53 AM) [id number] DICTATED and SIGNED BY: LONG NUNN MD DATE: 10/02/20 [id number] 0 Course & Med Decision Making: Course & Med Decision Making Pertinent Labs and Imaging studies reviewed. (See chart for details) Patient is an 85-year-old female who presented to ER due to chest pain. Patient cardiac enzyme and EKG came back normal so far. Patient be admitted to hospital for further evaluation and treatment because her blood pressure was elevated. Dragon Disclaimer: Dragchristopher Disclaimer: This electronic medical record was generated, in whole or in part, using a voice recognition dictation system. Departure Departure Impression: Primary Impression: Chest pain Additional Impression: Hypertension Disposition: ADMITTED INPT THIS HOSP Admitting Physician: Rush Gonzales Condition: STABLE Referrals: RUSH GONZALES MD (PCP) MADDISON CANO DO Oct 02, 2020 13:31
--- NOTE | 2020-10-02 13:57 | EKG ---
[facility] [address] [place] [address] Test Date: 2020-10-02 Test Time: 10:48:57 Pat Name: MARILYN MATTHEW Department: Room: Gender: F Manager Mail: VANESSA : 1935 Requested By: MADDISON CANO Order Number: [id number] Reading MD: Measurements Intervals [place] Rate: 60 P: VA: QRS: -60 QRSD: 184 T: 112 QT: 482 QTc: 487 Interpretive Statements IRREGULAR RHYTHM, NO P-WAVE FOUND ABNORMAL LEFT AXIS DEVIATION RIGHT BUNDLE BRANCH BLOCK QRS(T) CONTOUR ABNORMALITY CONSIDER INFERIOR MYOCARDIAL DAMAGE ABNORMAL ECG RI6.01 No previous ECG available for comparison
--- NOTE | 2020-10-02 14:47 | PDOC2 ---
ISAC SAXENA RAYNE 10/02/20 1447: CARDIAC CONSULT DATE OF CONSULT Date of Consult DATE: 10/02/20 TIME: 14:39 REASON FOR CONSULT Reason for Consult: Chest pain REFERRING PHYSICIAN Referring Physician: Dr. Sanders SOURCE Source: Chart review, Patient HISTORY OF PRESENT ILLNESS HISTORY OF PRESENT ILLNESS This is an yo female who presented secondary to chest pain, blurred vision, and dizziness. Patient reports blurred vision in her right eye upon awakening this morning. Took her routine pills and had breakfast. Began having pressure in her central chest and felt slightly dizziness. Pain did not radiate. No associated diaphoresis, palpitations, SOA, or nausea/vomiting. Pain persisted so she had daughter bring her to the ED for further evaluation and treatment. Blood pressure significantly elevated upon arrival. Reports compliance with home meds. Has had significant increase in stress at home recently, which generally causes her blood pressure to elevated. PAST MEDICAL HISTORY Cardiovascular: CAD, HTN, Hyperlipidemia, Aortic stenosis, Other (SSS) GI: GERD Heme/Onc: Cancer (breast CA) Musculoskeletal: Osteoarthritis Endocrine: Diabetes PAST SURGICAL HISTORY Past Surgical History: Pacemaker, Cataract Removal, Tubal Ligation, Other (right mastectomy ) FAMILY HISTORY Family History: Hypertension SOCIAL HISTORY Smoke: No ALCOHOL: none Drugs: None Lives: with Family CURRENT MEDICATIONS CURRENT MEDICATIONS Current Medications Medications (Trade) Dose Ordered Sig/Jeramy Route PRN Reason Start Time Stop Time Status Last Admin Dose Admin Hydralazine HCl (Apresoline Inj) 10 mg 1X ONCE IVP 10/02/20 13:30 10/02/20 13:31 DC 10/02/20 13:51 ALLERGIES ALLERGIES: Coded Allergies: No Known Drug Allergies (Unverified , 10/19/14) ROS Review of System 14 point ROS conducted with pertinent positives noted above in HPI PHYSICAL EXAM General: Alert, Oriented X3, Cooperative, No acute distress HEENT: Atraumatic, Mucous membr. moist/pink Lungs: Clear to auscultation Heart: Regular rate Abdomen: Soft, No tenderness Extremities: No edema, Normal pulses Skin: No breakdown, No significant lesion Neuro: Normal speech, Sensation intact Psych/Mental Status: Mental status NL, Mood NL MUSCULOSKELETAL: Osteoarthritic changes both hands VITALS/I&O VITALS/I&O: Vital Signs Date Time Temp Pulse Resp B/P (MAP) Pulse Ox O2 Delivery O2 Flow Rate FiO2 10/02/20 13:51 72 229/94 10/02/20 10:26 98.2 16 98 Room Air 98.2 LABS Lab: Laboratory Tests Test 10/02/20 10:40 10/02/20 13:10 White Blood Count 5.9 x10^3/uL (4.0-11.0) Red Blood Count 3.92 x10^6/uL (3.50-5.40) Hemoglobin 11.7 g/dL (12.0-15.5) L Hematocrit 35.6 % (36.0-47.0) L Mean Corpuscular Volume 91 fL (79-100) Mean Corpuscular Hemoglobin 30 pg (25-35) Mean Corpuscular Hemoglobin Concent 33 g/dL (31-37) Red Cell Distribution Width 14.9 % (11.5-14.5) H Platelet Count 172 x10^3/uL (140-400) Neutrophils (%) (Auto) 61 % (31-73) Lymphocytes (%) (Auto) 27 % (24-48) Monocytes (%) (Auto) 7 % (0-9) Eosinophils (%) (Auto) 3 % (0-3) Basophils (%) (Auto) 1 % (0-3) Neutrophils # (Auto) 3.6 x10^3/uL (1.8-7.7) Lymphocytes # (Auto) 1.6 x10^3/uL (1.0-4.8) Monocytes # (Auto) 0.4 x10^3/uL (0.0-1.1) Eosinophils # (Auto) 0.2 x10^3/uL (0.0-0.7) Basophils # (Auto) 0.1 x10^3/uL (0.0-0.2) Sodium Level 137 mmol/L (136-145) Potassium Level 4.1 mmol/L (3.5-5.1) Chloride Level 101 mmol/L (98-107) Carbon Dioxide Level 25 mmol/L (21-32) Anion Gap 11 (6-14) Blood Urea Nitrogen 16 mg/dL (7-20) Creatinine 0.9 mg/dL (0.6-1.0) Estimated GFR (Cockcroft-Gault) 72.2 BUN/Creatinine Ratio 18 (6-20) Glucose Level 212 mg/dL (70-99) H Calcium Level 9.4 mg/dL (8.5-10.1) Magnesium Level 2.0 mg/dL (1.8-2.4) Total Bilirubin 0.4 mg/dL (0.2-1.0) Aspartate Amino Transferase (AST) 23 U/L (15-37) Alanine Aminotransferase (ALT) 18 U/L (14-59) Alkaline Phosphatase 101 U/L (46-116) Troponin I Quantitative < 0.017 ng/mL (0.000-0.055) < 0.017 ng/mL (0.000-0.055) FO-Euc-M-Type Natriuretic Peptide 481 pg/mL (0-449) H Total Protein 7.5 g/dL (6.4-8.2) Albumin 3.8 g/dL (3.4-5.0) Albumin/Globulin Ratio 1.0 (1.0-1.7) Lipase 67 U/L (73-393) L Laboratory Tests 10/02/20 10:40 Laboratory Tests 10/02/20 10:40 ECHOCARDIOGRAM ECHOCARDIOGRAM <Conclusion> The left ventricular systolic function is normal and the ejection fraction is within normal range. The Ejection Fraction is 50-55%. There is normal LV segmental wall motion. There is moderate concentric left ventricular hypertrophy. Calculated aortic valve area is 1.17 cm2 with maximum pressure gradient of 33 mmHg and mean pressure gradient of 18 mmHg. Doppler and Color Flow revealed mild aortic regurgitation. Doppler and Color Flow revealed mild tricuspid regurgitation with an estimated PAP of 38 mmHg. DATE: 08/15/19 1310 HEART CATH HEART CATH Findings: Coronaries: The left main is essentially is a nonexistent vessel and the LAD and circumflex appear to have separate ostium. The LAD is small in caliber and has mild diffuse disease in the 20-40% range. The circumflex has a stent in the proximal to mid segment that is open and does not have any significant stenosis. The distal circumflex in between the third and fourth marginals appears to be diffusely disease with what seems to be a total chronic occlusion. There were bridging collaterals across the segment of the circumflex. The RCA is chronically occluded and has multiple areas of occlusion and actually gapping. Ventriculogram the left ventricle is mildly dilated the global left ventricular ejection fraction was estimated to be about 50%. There was no gradient across the aortic valve and the left ventricular end-diastolic pressure was 22 mmHg. 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 DATE: 10/23/141940 ASSESSMENT/PLAN ASSESSMENT/PLAN 1. Chest pain, atypical; AMI ruled out. Most probably secondary to #2. 2. Dizziness, left eye vision changes. 3. Hypertensive urgency; remains labile 4. 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 Echo 08/18 with preserved LV systolic function 5. Hyperlipidemia; statin 6. Diabetes, II 7. SSS s/p PPM (Biotronik); s/p recent gen changes. 100% AV paced Recommendations Trend troponin Lipids, TSH Echo to assess LV systolic function CT head Resume secondary prevention Restart home antiHTN therapy Add Imdur Monitor trends to assess need for therapy titration Hydralazine IV PRN Probable outpatient ischemic evaluation Supportive care Further pending above STACEY FERRER MD 10/02/201: CARDIAC CONSULT ASSESSMENT/PLAN ASSESSMENT/PLAN Patient seen and examined I agree with our nurse practitioners assessment and plan. Chest pain, atypical; AMI ruled out. Continue medical treatment. Previous catheterization as above. Probable outpatient ischemia evaluation. Dizziness, left eye vision changes. CT head scan. Hypertensive urgency; remains labile. Continue present medical treatment. Add Imdur. Check echocardiogram. 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 Echo 08/18 with preserved LV systolic function. Outpatient ischemia evaluation as above. Hyperlipidemia; statin. Check lab Diabetes, II. continue present treatment. SSS s/p PPM (Biotronik); s/p recent gen change. 100% AV paced ISAC SAXENA APRN Oct 02, 2020 14:47 STACEY FERRER MD Oct 02, 2020 18:21
[2020-10-02 16:00] VITALS: BP 201/84
[2020-10-02] MEDS ORDERED: hydrALAZINE 20 MG/ML VIAL. IVP PRN (16:00)
[2020-10-02] MEDS: ISOSORBIDE MONONITRATE ER 30 MG TAB.ER.24H PO SCH (16:00)
--- NOTE | 2020-10-02 16:54 | RAD ---
CT head without contrast dated 10/02/2020. Comparison made to 08/02/2018. CLINICAL INDICATION: Dizziness and vision changes. TECHNIQUE: Contiguous axial imaging the head was performed from skull base to vertex. No contrast administered. One or more of the following individualized dose reduction techniques were utilized for this examinat ion: 1. Automated exposure control 2. Adjustment of the mA and/or kV according to patient size 3. Use of iterative reconstruction technique. FINDINGS: Ventricles and sulci are mildly prominent for age. No midline shift or mass effect. Mild patchy low d ensity in the deep/subcortical periventricular white matter. No hemorrhage or extra-axial collection. Posterior fossa and brainstem unremarkable. Visualized paranasal sinuses and mastoid air cells are clear. No apparent calvarial abnormality. IMPRESSION: 1. No evidence of acute intracranial hemorrhage or mass. 2. Mild chronic small vessel ischemic changes and atrophy. Electronically signed by: Yinka Turner MD (10/02/2020 4:51 PM) [id number]
[2020-10-02 19:00] VITALS: BP 154/69
[2020-10-02] MEDS: SIMVASTATIN 20 MG TABLET PO SCH (21:06)
[2020-10-02 22:40] VITALS: BP 149/65
[2020-10-03 02:58] VITALS: BP 146/65
[2020-10-03 05:29] LABS: CHOLESTEROL/HDL RATIO 3.6
[2020-10-03 07:00] VITALS: BP 168/76
--- NOTE | 2020-10-03 08:58 | PDOC ---
Provider Note Date of Service: DATE: 10/03/20 TIME: 08:58 Provider Note dictated Justifications for Admission Other Justification RUSH GONZALES MD Oct 03, 2020 08:58
[2020-10-03] MEDS ORDERED: LISINOPRIL 20 MG TABLET PO SCH (09:00)
[2020-10-03] MEDS: ISOSORBIDE MONONITRATE ER 30 MG TAB.ER.24H PO SCH (09:33)
[2020-10-03] MEDS: ASPIRIN ENTERIC COATED 81 MG TABLET.DR. PO SCH (09:35)
[2020-10-03] MEDS: ATENOLOL 50 MG TABLET. PO SCH (09:35)
[2020-10-03] MEDS: hydroCHLOROthiazide 12.5 MG CAPSULE PO SCH (09:36)
--- NOTE | 2020-10-03 10:20 | NUR ---
SW following. Discussed with RN, pt from home with son, room air, gets around. Pt having an echo today. RN advised no SW needs at this time. Cardiology following. SW will continue to follow.
--- NOTE | 2020-10-03 10:46 | PDOC ---
ISAC SAXENA TOOL ROOM MACHINIST 10/03/20 1046: CARDIO Progress Notes Date and Time Date of Service 10/03/20 Time of Evaluation 1040 Subjective Subjective: No Chest Pain, No shortness of breath, No Palpitations, Other (family at bedside ) Vitals Vitals Vital Signs Date Time Temp Pulse Resp B/P (MAP) Pulse Ox O2 Delivery O2 Flow Rate FiO2 10/03/20 09:35 60 168/76 10/03/20 08:03 Room Air 10/03/20 07:00 98.0 18 95 98.0 Weight Weight [ ] Input and Output Intake and Output Intake and Output 10/03/20 07:00 Intake Total 510 ml Output Total 750 ml Balance -240 ml Intake Oral 510 ml Output Urine Total 750 ml # Voids 1 Laboratory Labs Laboratory Tests Test 10/02/20 13:10 10/02/20 17:48 10/03/20 03:05 Troponin I Quantitative < 0.017 ng/mL (0.000-0.055) < 0.017 ng/mL (0.000-0.055) Triglycerides Level 142 mg/dL (0-150) Cholesterol Level 200 mg/dL (0-200) LDL Cholesterol, Calculated 117 mg/dL (0-100) VLDL Cholesterol, Calculated 28 mg/dL (0-40) Non-HDL Cholesterol Calculated 145 mg/dL (0-129) HDL Cholesterol 55 mg/dL (40-60) Cholesterol/HDL Ratio 3.6 Thyroid Stimulating Hormone (TSH) 2.829 uIU/mL (0.358-3.74) Physical Exam HEENT: Neck Supple W Full Motion Chest: Symmetric LUNGS: Clear to Auscultation Heart: RRR, murmurs (2/6 systolic murmur ) Abdomen: Soft N/T Extremities: 2+ Posterior Tibial, No Edema Neurology: alert, oriented, follow commands Assessment Assessment 1. Chest pain, atypical; AMI ruled out. Most probably secondary to #2. Resolved 2. Dizziness, left eye vision changes; CT head without acute findings. Most probable secondary to above. Symptoms have resolved 3. Hypertensive urgency; remains labile 4. CAD; cath 2014 with EXERCISE SCIENCE INSTRUCTOR of the distal circumflex and RCA. Echo 08/18 with preserved LV systolic function 5. Hyperlipidemia; statin. LDL 117 6. Diabetes, II 7. SSS s/p PPM (Biotronik); s/p recent gen changes. 100% AV paced. Recent device check with normal function and stable lead impedances. Recommendations Echo today Secondary prevention measures Increase lisinopril for better BP control Hydralazine IV PRN Probable outpatient ischemic evaluation Supportive care Justicifation of Admission Dx: Justifications for Admission: Justification of Admission Dx: N/A STACEY FERRER MD 10/03/20 1731: CARDIO Progress Notes Assessment Assessment Patient seen and examined I agree with our nurse practitioners assessment and plan as above. Chest pain, atypical; AMI ruled out. Most probably secondary to #2. Pain resolved. Echo pending. Dizziness, left eye vision changes; CT head without acute findings. Symptoms have resolved Hypertensive urgency; remains labile . Increasing lisinopril. CAD; cath 2014 with EXERCISE SCIENCE INSTRUCTOR of the distal circumflex and RCA. Echo 08/18 with preserved LV systolic function. Outpatient ischemia work-up. Hyperlipidemia; statin. LDL 117 SSS s/p PPM (Biotronik); s/p recent gen changes. 100% AV paced. Recent device check with normal function and stable lead impedances. ISAC SAXENA APRN Oct 03, 2020 10:46 STACEY FERRER MD Oct 03, 2020 17:31
--- NOTE | 2020-10-03 10:57 | HP ---
ADMIT DATE: 10/02/2020 CHIEF COMPLAINT: Dizziness and right eye blurry vision. HISTORY OF PRESENT ILLNESS: A 79-year-old black female with longstanding hypertension, who has had couple days of nonspecific dizziness, mild chest discomfort and some decreased vision in the right eye only. Dizziness at this time vertiginous in origin, but no vomiting, nausea, sweating or other symptoms. CT scan of the head was negative as cardiac exam. She is feeling better with some IV hydralazine and her initial blood pressure was high. PAST MEDICAL HISTORY: She takes her same home meds, which she has been compliant with. No other serious known medical problems. SOCIAL HISTORY: , lives with her son. Nonsmoker, nondrinker. FAMILY HISTORY: Unremarkable. REVIEW OF SYSTEMS: Unremarkable. OBJECTIVE: ENT: All within normal limits. NECK: No bruits, nodes or masses. LUNGS: Clear. CARDIOVASCULAR: Regular rate. No murmur. ABDOMEN: Benign. EXTREMITIES: Good pedal and radial pulses. No edema. NEUROLOGIC: Physiologic and nonfocal. ASSESSMENT: Hypertension secondary to inadequate medical response. Dizziness is nonspecific, may be blood pressure related. The right eye, intermittent vision, mildly concerning for embolic process to the right eye, but does not sound cerebrovascular in origin. PLAN: We will add HCTZ for blood pressure. Continue to monitor. Check carotid Dopplers today. RUSH GONZALES MD DR: AIMEE/leydi JOB#: [id number] / [id number]
[2020-10-03 11:00] VITALS: BP 168/70
--- NOTE | 2020-10-03 12:35 | RAD ---
BILATERAL DUPLEX CAROTID SONOGRAPHY History: Reason: r VISUAL FIELD LOSS Technique: Duplex sonography of the cervical portion of both carotid arteries was performed. Real-ysabel e grayscale, color flow Doppler, and Doppler spectral waveform analysis is performed. Findings: Right side: Peak systolic flow velocity of the CCA is 67 cm/sec. Peak systolic flow velocity of the ICA is 70 cm/sec. The ICA/CCA ratio is 1. Peak end diastolic flow velocity of the ICA is 24 cm/sec. The peak systolic velocity of the ECA is 84 cm/sec. There is moderate heterogeneous plaque in the distal CCA and ICA. Left side: Peak systolic flow velocity of the CCA is 63 cm/sec. Peak systolic flow velocity of the ICA is 89 cm/sec. The ICA/CCA ratio is 1.4. Peak end diastolic flow velocity of the ICA is 31 cm/sec. Peak systolic flow velocity of the ECA is 72 cm/sec. There is CCA intimal thickening. There is moderate heterogeneous plaque in the ICA. Vertebral arteries: The right vertebral artery demonstrates antegrade flow. The left vertebral artery is occluded. Subclavian arteries demonstrate biphasic waveforms. IMPRESSION: 1. No hemodynamically significant internal carotid artery stenosis is identified. 2. The left vertebral artery is occluded. PQRS Compliance Statement - Stenosis calculations for CT, MR and conventional angiography are based u alexandra measurement of the distal ICA diameter in accordance with the NASCET methodology. Stenosis calcu lations for carotid ultrasound studies are derived from validated velocity criteria which are known t o correlate with the NASCET methodology. Electronically signed by: Héctor Ibanez MD (10/03/2020 12:33 PM) [id number]
[2020-10-03] MEDS ORDERED: LISINOPRIL 10 MG TABLET PO ONE (14:00)
[2020-10-03] MEDS ORDERED: ASPIRIN ENTERIC COATED 81 MG TABLET.DR. PO SCH (14:00)
[2020-10-03 15:00] VITALS: BP 165/77
[2020-10-03 19:14] VITALS: BP 157/70
[2020-10-03] MEDS: SIMVASTATIN 20 MG TABLET PO SCH (20:15)
[2020-10-03 22:58] VITALS: BP 166/76
[2020-10-04 02:38] VITALS: BP 175/74
[2020-10-04 07:00] VITALS: BP 170/77
--- NOTE | 2020-10-04 08:49 | PDOC ---
Provider Note Date of Service: DATE: 10/04/20 TIME: 08:48 Provider Note [id number] Justifications for Admission Other Justification RUSH GONZALES MD Oct 04, 2020 08:49
[2020-10-04] MEDS: ASPIRIN ENTERIC COATED 81 MG TABLET.DR. PO SCH (08:52)
[2020-10-04] MEDS: ISOSORBIDE MONONITRATE ER 30 MG TAB.ER.24H PO SCH (08:53)
[2020-10-04] MEDS: hydroCHLOROthiazide 12.5 MG CAPSULE PO SCH (08:53)
[2020-10-04] MEDS: ATENOLOL 50 MG TABLET. PO SCH (08:53)
[2020-10-04] MEDS ORDERED: LISINOPRIL 20 MG TABLET PO SCH (09:00)
--- NOTE | 2020-10-04 09:17 | CARD ---
MR#: [id number] Date of Study: 10/03/2020 Ordering Physician: ISAC SAXENA, Referring Physician: ISAC SAXENA, Tech: Ana Paula Emerson, [facility] APPROVED REPORT EXAM: Two-dimensional and M-mode echocardiogram with Doppler and color Doppler. Other Information Quality : GoodHR: 60bpm Rhythm : Pacemaker INDICATION Cardiac Disease: CAD Chest Pain Surgery/Intervention Pacemaker: Date: 2019 RISK FACTORS Hypertension Hyperlipidemia 2D DIMENSIONS RVDd3.4 (2.9-3.5cm)Left Atrium(2D)4.0 (1.6-4.0cm) IVSd1.2 (0.7-1.1cm)Aortic Root(2D)2.8 (2.0-3.7cm) LVDd4.2 (3.9-5.9cm)LVOT Diameter1.8 (1.8-2.4cm) PWd1.1 (0.7-1.1cm)LVDs2.6 (2.5-4.0cm) FS (%) 38.3 %SV53.5 ml Aortic Valve AoV Peak Curt.303.2cm/sAoV VTI70.0cm AO Peak GR.36.8mmHgLVOT Peak Curt.103.6cm/s LVOT VTI 26.58cmAO Mean GR.22mmHg JOSE (VMAX)0.43xn6LPE (VTI)0.98cm2 AI P 1/2 [id number] Mitral Valve MV E Pmfmpcrz61.1cm/sMV DECEL [id number] MV A Fgwgtozj085.3cm/sMV LSC278ke E/A Ratio0.5MVA (PHT)2.12cm2 TDI E/Lateral E'13.1E/Medial E'13.4 Pulmonary Valve PV Peak Fkufblfm33.7cm/sPV Peak Grad.3mmHg Tricuspid Valve TR P. Chgugcmc283bl/sRAP LDCIXKUU4erRq TR Peak Gr.32usUjSAIQ40tzIo LEFT VENTRICLE The left ventricle is normal size. There is mild concentric left ventricular hypertrophy. The left ve ntricular systolic function is normal and the ejection fraction is within normal range. The Ejection Fraction is 55-60%. There is normal LV segmental wall motion. Transmitral Doppler flow pattern is Gra de I-abnormal relaxation pattern. RIGHT VENTRICLE The right ventricle is normal size. The right ventricle is mildly hypertrophied. The right ventricula r systolic function is normal. There is a pacemaker lead in the right ventricle. ATRIA The left atrium size is normal. The right atrium size is normal. The interatrial septum is intact wit h no evidence for an atrial septal defect or patent foramen ovale as noted on 2-D or Doppler imaging. AORTIC VALVE The aortic valve is calcified and displays decreased opening. Doppler and Color Flow revealed trace t o mild aortic regurgitation. Calculated aortic valve maximum pressure gradient of 43 mmHg and mean pr essure gradient of 25 mmHg. There is moderate valvular aortic stenosis. MITRAL VALVE The mitral valve is normal in structure and function. There is no evidence of mitral valve prolapse. There is no mitral valve stenosis. Doppler and Color-flow revealed trace mitral regurgitation. TRICUSPID VALVE The tricuspid valve is normal in structure and function. Doppler and Color Flow revealed trace tricus pid regurgitation with an estimated PAP of 33 mmHg. There is no tricuspid valve stenosis. PULMONIC VALVE The pulmonary valve is normal in structure and function. Doppler and Color Flow revealed mild pulmoni c valvular regurgitation. GREAT VESSELS The aortic root is normal in size. The ascending aorta is normal in size. The IVC is normal in size a nd collapses >50% with inspiration. PERICARDIAL EFFUSION There is no evidence of significant pericardial effusion. Critical Notification Critical Value: No <Conclusion> The left ventricle is normal size. The left ventricular systolic function is normal and the ejection fraction is within normal range. The Ejection Fraction is 55-60%. There is mild concentric left ventricular hypertrophy. The aortic valve is calcified and displays decreased opening. Calculated aortic valve maximum pressure gradient of 43 mmHg and mean pressure gradient of 25 mmHg. There is moderate valvular aortic stenosis. Doppler and Color Flow revealed trace to mild aortic regurgitation. Doppler and Color-flow revealed trace mitral regurgitation. Doppler and Color Flow revealed trace tricuspid regurgitation with an estimated PAP of 33 mmHg. Signed by : Jarad Boss MD Electronically Approved : 10/04/2020 09:16:20
--- NOTE | 2020-10-04 09:47 | NUR ---
SS following up with discharge planning. SS reviewed pt chart and discussed with pt RN. Pt is currently on room air. Discharge order on the chart for home with self care.
--- NOTE | 2020-10-04 09:48 | DS ---
DATE OF DISCHARGE: 10/04/2020 HOSPITAL SUMMARY: An 85-year-old black female came in with nonspecific dizziness and some right eye blurry vision and very high blood pressure. She has been compliant with her medications. CBC, chemistry profile, TSH and cardiac enzymes were all unremarkable, though her glucose was 212 on one time sample. Cholesterol was 200, HDL 55, LDL 117. CT of the head and chest x-ray were clear. Pacemaker in place. Carotid Doppler showed no surgical stenotic lesions. She was monitored with home meds, given some IV hydralazine and added hydrochlorothiazide to her home blood pressure regimen. Her dizziness has improved somewhat as her blood pressure is little lower and there is no sign of any embolic phenomenon via the carotids and she is comfortable to be followed as an outpatient. FINAL DIAGNOSES: 1. Accelerated hypertension and secondary dizziness. 2. Hyperglycemia, possible and new onset of diabetes. OPERATIONS, PROCEDURES, COMPLICATIONS: None. CONSULTATIONS: Dr. Cliffords, group. DISPOSITION: We will add hydrochlorothiazide to current home meds. Office followup in 1-2 weeks. We will do a hemoglobin A1c at that time given the random glucose of 212, low salt intake, good fluid intake, activity as tolerated. RUSH GONZALES MD DR: AIMEE/nts JOB#: [id number] / [id number]
[2020-10-04] MEDS ORDERED: ISOS30TA68 PO ×2 (10:18→12:17)
[2020-10-04] MEDS ORDERED: LISI-130 PO ×2 (10:18→12:17)
--- NOTE | 2020-10-04 10:19 | PDOC ---
ISAC SAXENA UTILITY DIVISION PROJECT MANAGER 10/04/20 1019: CARDIO Progress Notes Date and Time Date of Service 10/04/20 Time of Evaluation 1000 Subjective Subjective: No Chest Pain, No shortness of breath, No Palpitations, Other (family at bedside ) Vitals Vitals Vital Signs Date Time Temp Pulse Resp B/P (MAP) Pulse Ox O2 Delivery O2 Flow Rate FiO2 10/04/20 08:54 60 170/77 10/04/20 07:00 98.0 18 96 Room Air 98.0 Weight Weight [ ] Input and Output Intake and Output Intake and Output 10/04/20 07:00 Intake Total 665 ml Output Total 525 ml Balance 140 ml Intake Oral 665 ml Output Urine Total 525 ml # Voids 2 Physical Exam HEENT: Neck Supple W Full Motion Chest: Symmetric LUNGS: Clear to Auscultation Heart: RRR, murmurs (2/6 systolic murmur ) Abdomen: Soft N/T Extremities: 2+ Posterior Tibial, No Edema Neurology: alert, oriented, follow commands Assessment Assessment 1. Chest pain, atypical; AMI ruled out. Most probably secondary to #2. Resolved. Echo with preserved LV systolic function and moderate aortic stenosis. 2. Dizziness, left eye vision changes; CT head without acute findings. Most probable secondary to above. Symptoms have resolved 3. Hypertensive urgency; remains elevated 4. CAD; cath 2014 with PHYSICIAN ASSISTANT PRIMARY CARE of the distal circumflex and RCA. clinically stable. 5. Hyperlipidemia; statin. LDL 117 6. Diabetes, II 7. SSS s/p PPM (Biotronik); s/p recent gen changes. 100% AV paced. Recent device check with normal function and stable lead impedances. Recommendations Secondary prevention measures Probable outpatient ischemic evaluation Follow up with Dr. Ferrer as scheduled. Supportive care Justicifation of Admission Dx: Justifications for Admission: Justification of Admission Dx: N/A STACEY FERRER MD 10/04/20 1831: CARDIO Progress Notes Assessment Assessment Patient seen and evaluated I agree with our nurse practitioners assessment and plan Chest pain, atypical; AMI ruled out. Most probably secondary to #2. Resolved. Echo with preserved LV systolic function and moderate aortic stenosis. Dizziness, left eye vision changes; CT head without acute findings. Most probable secondary to above. Symptoms have resolved Hypertensive urgency; improved. CAD; cath 2014 with PHYSICIAN ASSISTANT PRIMARY CARE of the distal circumflex and RCA. clinically stable. Hyperlipidemia; statin. LDL 117 Diabetes, II SSS s/p PPM (Biotronik); s/p recent gen changes. 100% AV paced. Recent device check with normal function and stable lead impedances. Outpatient follow-up. ISAC SAXENA APRN Oct 04, 2020 10:19 STACEY FERRER MD Oct 04, 2020 18:31
[2020-10-04 11:00] VITALS: BP 165/77
[2020-10-04] MEDS ORDERED: HYDR12.575 PO (12:17)
--- NOTE | 2020-10-04 13:15 | NUR ---
Discharge Note: MARILYN MATTHEW Discharge instructions and discharge home medications reviewed with Patient and a copy given. All questions have been answered and understanding verbalized. The following instructions and handouts were given: Hypertension, Chest pain Discontinued lines and drains: Peripheral IV intact. Patient discharged to Home or Self Care with Family Member via Stretcher
[2020-10-05] MEDS ORDERED: ISOSORBIDE MONONITRATE ER 30 MG TAB.ER.24H PO SCH (09:00)
== END 2020-10-04 13:15 | disposition home or self-care (01) ==
LOC: ER 10:21 → 2 SOUTH 14:23
PROVIDERS: ADMIT Family Medicine; ATTEND Family Medicine
DX: R07.89 Other chest pain (principal); I10 Essential (primary) hypertension; R42 Dizziness and giddiness; H54.7 Unspecified visual loss; I48.91 Unspecified atrial fibrillation; I49.5 Sick sinus syndrome; I25.10 Atherosclerotic heart disease of native coronary artery without angina pectoris; I16.0 Hypertensive urgency; I35.0 Nonrheumatic aortic (valve) stenosis; I70.0 Atherosclerosis of aorta; E11.9 Type 2 diabetes mellitus without complications; E78.5 Hyperlipidemia, unspecified; I25.2 Old myocardial infarction; Z85.3 Personal history of malignant neoplasm of breast; Z98.61 Coronary angioplasty status; Z95.0 Presence of cardiac pacemaker; Z90.11 Acquired absence of right breast and nipple
CPT/HCPCS: 36415; 70450; 71045; 80053; 80061; 83690; 83735; 83880; 84443; 84484; 85025; 93005; 93306; 93880; 96374; 96376; 99285; G0378; J0360; G0379

== ENCOUNTER 2021-06-03 06:11 | Emergency (ER) | payer MEDICARE, OTHER ==
[~2021-06-03] VITALS: Ht 170.2 cm; Wt 57.0 kg
[~2021-06-03 06:11] MED LIST changes: +HYDR12.575 PO; +ISOS30TA68 PO; +LISI-130 PO
--- NOTE | 2021-06-03 06:28 | PHYS DOC ---
Past Medical History Past Medical History: A-Fib, Cancer, Hypertension, NV, Other Additional Past Medical Histor: BREAST CA,LYMPHEDEMA RIGHT ARM Past Surgical History: Pacemaker, Other Additional Past Surgical Histo: cardiac cath,R MASTECTOMY Smoking Status: Never Smoker Alcohol Use: None Drug Use: None General Adult EDM: Chief Complaint: BACK PAIN - NO INJURY HPI: HPI: Patient is a 86 year old female who presents with right upper quadrant abdominal pain, which radiates to her right flank, symptoms began yesterday. The pain is been constant. Pain is worsened by consuming water or any food. She reports nausea and vomiting. She has some chronic constipation issues, with the last bowel movement occurring yesterday. She is passing flatus. Denies any acute bowel habit changes otherwise. She denies urinary symptoms of dysuria or pain. She has chronic urinary incontinence and chronic urinary frequency, which is unchanged. She denies fevers or chills. She denies chest pain, cough, dyspnea. She denies lower abdominal pain. She reports that she was told at 1 time she thinks she may have had a history of pancreatic cancer, but this turned out to not be the case. She does have a history of right breast cancer status postmastectomy. No previous similar symptoms. She denies having any abdominal surgeries in the past. Review of Systems: Review of Systems: Constitutional: Denies fever or chills. [] HENT: Denies nasal congestion or sore throat. [] Respiratory: Denies cough or shortness of breath. [] Cardiovascular: Denies chest pain or edema. [] GI: Reports abdominal pain and nausea and vomiting. Denies acute bowel habit changes. : Denies dysuria. Reports chronic urinary incontinence and urinary frequency. Denies gross hematuria. Musculoskeletal: Right upper back pain, radiating from the RUQ of the abdomen Integument: Denies rash. [] Neurologic: Denies headache, focal weakness or sensory changes. [] Psychiatric: Denies depression or anxiety. [] Heart Score: C/O Chest Pain: No Risk Factors: Risk Factors: DM, Current or recent (<one month) smoker, HTN, HLP, family history of CAD, obesity. Risk Scores: Score 0 - 3: 2.5% MACE over next 6 weeks - Discharge Home Score 4 - 6: 20.3% MACE over next 6 weeks - Admit for Clinical Observation Score 7 - 10: 72.7% MACE over next 6 weeks - Early Invasive Strategies Allergies: Allergies: Allergies Coded Allergies Type Severity Reaction Last Updated Verified No Known Drug Allergies 10/19/14 No Physical Exam: PE: Constitutional: Well developed, well nourished, no acute distress, non-toxic appearance. [] HENT: Normocephalic, atraumatic Eyes: Sclera are clear, anicteric Neck: Normal range of motion, no tenderness, supple, no stridor. [] Cardiovascular:Heart rate regular rhythm, systolic murmur, +2 radial and dorsalis pedis pulses bilaterally Lungs & Thorax: Bilateral breath sounds clear to auscultation [] Abdomen: Abdomen is soft, non-distended, normal bowel sounds, exquisite RUQ tenderness, with voluntary guarding, no rebound tenderness. No lower abdominal tenderness. No palpable mass or organomegaly. No CVA tenderness. No audible bruit. No palpable pulsatile mass. No flank or abdominal ecchymoses. Skin: Warm, dry, no erythema, no rash, no jaundice. Back: No tenderness, no CVA tenderness. [] Extremities: No tenderness, no cyanosis, no clubbing, ROM intact, no edema. No calf tenderness. Neurologic: Alert and oriented X 3, normal motor function, normal sensory function, no focal deficits noted. [] Psychologic: Affect normal, judgement normal, mood normal. [] EKG: EKG: EKG is interpreted at 0633 Rhythm is sinus Rate is 60 bpm Dana is left No STEMI Radiology/Procedures: Radiology/Procedures: IMAGING REPORT Signed PATIENT: MARILYN MATTHEW ACCOUNT: [id number] : 1935 LOCATION: ER AGE: 86 SEX: F EXAM STATUS: REG ER ORD. PHYSICIAN: WILLY GILES DO REASON: RUQ pain PROCEDURE: ABDOMEN LTD Ultrasound of the right upper quadrant abdomen 06/03/2021 CLINICAL HISTORY: Right upper quadrant abdominal pain. TECHNIQUE: A real-time ultrasound examination right upper quadrant abdomen was performed. Multiple images were obtained. FINDINGS: The liver is normal in size measuring 14.6 cm in length. No focal abnormality of the liver is seen. The visualized pancreas and right kidney are within normal limits. The gallbladder is well-distended. No gallstones are visualized. The gallbladder wall thickness is within normal limits. No pericholecystic fluid is seen. The common bile duct measures 5 mm in diameter which is within normal limits. IMPRESSION: Negative study. Electronically signed by: Medardo Martinez MD (06/03/2021 8:06 AM) [id number] DICTATED and SIGNED BY: MEDARDO MARTINEZ MD DATE: 06/03/21 [id number] IMAGING REPORT Signed PATIENT: MARILYN MATTHEW ACCOUNT: [id number] : 1935 LOCATION: ER AGE: 86 SEX: F EXAM STATUS: REG ER ORD. PHYSICIAN: WILLY GILES DO REASON: abdominal pain, n/v PROCEDURE: CT ABDOMEN PELVIS WO CONTRAST EXAM: CT Abdomen and Pelvis without IV contrast CLINICAL HISTORY: abdominal pain, n/v COMPARISON: none TECHNIQUE: Helical CT of the abdomen and pelvis without intravenous contrast. Axial, coronal and sagittal reformatted images were generated. PQRS compliance statement - One or more of the following individualized dose reduction techniques were utilized for this study: 1. Automated exposure control 2. Adjustment of the mA and/or kV according to patient size 3. Use of iterative reconstruction technique FINDINGS: Lack of intravenous contrast limits evaluation of solid organs, vasculature, and lymph nodes. Lower chest: Minimal patchy opacities dependent lower lobes likely atelectasis or developing consolidation. Coronary calcifications. Pacer leads are seen in the heart. Small hiatal hernia. Abdomen and Pelvis: Liver, spleen, adrenal glands, pancreas are unremarkable. High density material dependently within the gallbladder likely sludge. No biliary ductal dilatation. No focal liver lesion. No hydronephrosis. No hydroureter. No renal tract calculus. Small fat-containing periumbilical hernia. Uterus and adnexa are grossly unremarkable. Large volume colonic stool content is seen. No small or large bowel dilatation. No bowel obstruction. Appendix is normal. Aortobiiliac atherosclerotic calcifications. Marked distention of the bladder. No abdominal pelvic ascites. No abdominal or pelvic lymphadenopathy. Bones: SI joints, symphysis pubis and lower lumbar spine degenerative changes are seen IMPRESSION: 1. Moderate distention of the bladder. This should be correlate for possible voluntary or involuntary causes of urinary retention. 2. Appendix is normal. 3. Large volume colonic stool content. No bowel obstruction. 4. Fat-containing periumbilical hernia. 5. Renal tract calculus. Electronically signed by: Oscar Webber MD (06/03/2021 1:14 PM) [facility] DICTATED and SIGNED BY: OSCAR WEBBER MD DATE: 06/03/21 [id number] Course & Med Decision Making: Course & Med Decision Making Pertinent Labs and Imaging studies reviewed. (See chart for details) I have discussed the findings, differential diagnosis and plan of care with the patient as well as with her family. It took several hours to obtain IV access. She was given IM Zofran and IM morphine. She reported no further pain at all after that. No further nausea. She is tolerating oral fluids without difficulty. She has a benign, nonsurgical abdominal exam. Ultrasound revealed no acute process. CT of the abdomen pelvis reveals no acute surgical process. Urinalysis does demonstrate signs of infection. She has chronic urinary symptoms, she has a history of UTIs. She is given a p.o. dose of Keflex here prior to discharge. She feels very comfortable to plan for discharge home. Her blood pressure is elevated, though she has chronic hypertension, has not been able to take her blood pressure medicine today. She is asymptomatic of any pain or discomfort at all at this time. No current indication for further imaging, invasive exams or admission at this time, based on current clinical presentation. She understands that urine culture is pending, she should be notified of any need to change treatment based on these results. She is anxiously awaiting discharge home. I told her to contact her PCP for follow-up. Return precautions are given. She verbalizes understanding. Nida Disclaimer: Nida Disclaimer: This electronic medical record was generated, in whole or in part, using a voice recognition dictation system. Departure Departure Impression: Primary Impression: Abdominal pain Additional Impression: Urinary tract infection Disposition: 01 HOME / SELF CARE / HOMELESS Condition: STABLE Referrals: RUSH GONZALES MD (PCP) Patient Instructions: Abdominal Pain (Nonspecific), Urinary Tract Infection Additional Instructions: Take the full course of antibiotics. Use the pain and nausea medicine as needed/as directed. Make sure to use stool softeners and eat a high-fiber diet. Drink plenty of water. Return to the ER for temperature 100.4 or higher, severe chest pain, shortness of breath, vomiting blood, uncontrolled vomiting with dehydration, more severe pain or any other concerns. Please contact your primary care physician for follow-up. If there is any need to change your antibiotics for your urinary tract infection, based on your urine culture, you should be notified within about 48 hours. Scripts Hydrocodone Bit/Acetaminophen (HYDROCODONE-APAP 5-325 ) 1 Tab Tablet 1 TAB PO PRN Q6HRS PRN for PAIN, #10 TAB 0 Refills Prov: WILLY GILES DO 06/03/21 Docusate Sodium (COLACE) 100 Mg Capsule 1 CAP PO BID for constipation, #20 CAP 0 Refills Prov: WILLY GILES DO 06/03/21 Cephalexin (KEFLEX) 500 Mg Capsule 1 CAP PO BID for 7 Days, #14 CAP Prov: WILLY GILES DO 06/03/21 Ondansetron Hcl (ZOFRAN) 4 Mg Tablet 4 MG PO PRN TID PRN for VOMITING, #20 TAB 0 Refills nausea/vomiting Prov: WILLY GILES DO 06/03/21 WILLY GILES DO Jun 03, 2021 06:28
[2021-06-03] MEDS ORDERED: fentaNYL PF VIAL 100 MCG/2 ML VIAL IVP ONE (07:00)
[2021-06-03] MEDS ORDERED: ONDANSETRON PF 4 MG/2 ML VIAL. IVP ONE (07:00)
[2021-06-03] MEDS ORDERED: IV NORMAL SALINE 1000ML BAG 1,000 ML IV ONE (07:00)
--- NOTE | 2021-06-03 07:35 | EKG ---
[facility] [address] [place] [address] Test Date: 2021-06-03 Test Time: 06:30:51 Pat Name: MARILYN MATTHEW Department: Room: Gender: F [employer]ir[employer] Worker: : 1935 Requested By: WILLY GILES Order Number: [id number] Reading MD: Measurements Intervals [place] Rate: 60 P: -31 WA: 186 QRS: -61 QRSD: 200 T: 118 QT: 502 QTc: 507 Interpretive Statements SINUS RHYTHM ABNORMAL LEFT AXIS DEVIATION NON SPECIFIC INTRAVENTRICULAR BLOCK RVH WITH REPOLARIZATION ABNORMALITY ABNORMAL ECG RI6.02 No previous ECG available for comparison
--- NOTE | 2021-06-03 08:08 | RAD ---
Ultrasound of the right upper quadrant abdomen 06/03/2021 CLINICAL HISTORY: Right upper quadrant abdominal pain. TECHNIQUE: A real-time ultrasound examination right upper quadrant abdomen was performed. Multiple im ages were obtained. FINDINGS: The liver is normal in size measuring 14.6 cm in length. No focal abnormality of the liver is seen. The visualized pancreas and right kidney are within normal limits. The gallbladder is well-distended. No gallstones are visualized. The gallbladder wall thickness is wi thin normal limits. No pericholecystic fluid is seen. The common bile duct measures 5 mm in diameter which is within normal limits. IMPRESSION: Negative study. Electronically signed by: Medardo Martinez MD (06/03/2021 8:06 AM) [id number]
[2021-06-03] MEDS ORDERED: MORPHINE SULFATE 4 MG/ML INJ. IM ONE (09:15)
[2021-06-03] MEDS ORDERED: ONDANSETRON PF 4 MG/2 ML VIAL. IM ONE (09:15)
[2021-06-03 10:19] LABS: BASO % 1 % (0-3); EOS % 1 % (0-3); HEMATOCRIT 33.1 % (36.0-47.0); HEMOGLOBIN 10.7 g/dL (12.0-15.5); LYMPH # 1.1 x10^3/uL (1.0-4.8); LYMPH % 23 % (24-48); MEAN CORPUSCULAR HEMOGLOBIN 30 pg (25-35); MEAN CORPUSCULAR HGB CONC 32 g/dL (31-37); MEAN CORPUSCULAR VOLUME 92 fL (79-100); MONO # 0.3 x10^3/uL (0.0-1.1); MONO % 5 % (0-9); NEUT # 3.5 x10^3/uL (1.8-7.7); NEUT % 70 % (31-73); PLATELET COUNT 157 x10^3/uL (140-400); RED BLOOD COUNT 3.58 x10^6/uL (3.50-5.40); RED CELL DISTRIBUTION WIDTH 14.5 % (11.5-14.5)
[2021-06-03 12:10] LABS: CALCIUM 9.4 mg/dL (8.5-10.1); CREATININE 0.8 mg/dL (0.6-1.0); GFR 82.5; POTASSIUM 3.4 mmol/L (3.5-5.1)
[2021-06-03 12:16] LABS: ALBUMIN 3.5 g/dL (3.4-5.0); TOTAL BILIRUBIN 0.4 mg/dL (0.2-1.0)
--- NOTE | 2021-06-03 13:16 | RAD ---
EXAM: CT Abdomen and Pelvis without IV contrast CLINICAL HISTORY: abdominal pain, n/v COMPARISON: none TECHNIQUE: Helical CT of the abdomen and pelvis without intravenous contrast. Axial, coronal and sagi ttal reformatted images were generated. PQRS compliance statement - One or more of the following individualized dose reduction techniques wer e utilized for this study: 1. Automated exposure control 2. Adjustment of the mA and/or kV according to patient size 3. Use of iterative reconstruction technique FINDINGS: Lack of intravenous contrast limits evaluation of solid organs, vasculature, and lymph nodes. Lower chest: Minimal patchy opacities dependent lower lobes likely atelectasis or developing consolidation. Luna ry calcifications. Pacer leads are seen in the heart. Small hiatal hernia. Abdomen and Pelvis: Liver, spleen, adrenal glands, pancreas are unremarkable. High density material dependently within th e gallbladder likely sludge. No biliary ductal dilatation. No focal liver lesion. No hydronephrosis. No hydroureter. No renal tract calculus. Small fat-containing periumbilical hernia. Uterus and adnexa are grossly unremarkable. Large volume colonic stool content is seen. No small or large bowel dilatation. No bowel obstruction. Appendix is normal. Aortobiiliac atherosclerotic calcifications. Marked distention of the bladder. No abdominal pelvic ascites. No abdominal or pelvic lymphadenopathy. Bones: SI joints, symphysis pubis and lower lumbar spine degenerative changes are seen IMPRESSION: 1. Moderate distention of the bladder. This should be correlate for possible voluntary or involuntar y causes of urinary retention. 2. Appendix is normal. 3. Large volume colonic stool content. No bowel obstruction. 4. Fat-containing periumbilical hernia. 5. Renal tract calculus. Electronically signed by: Oscar Paul MD (06/03/2021 1:14 PM) [facility]
[2021-06-03 13:57] LABS: BILIRUBIN,URINE NEGATIVE (NEG); CLARITY,URINE CLOUDY; COLOR,URINE YELLOW; NITRITE,URINE NEGATIVE (NEG); PH,URINE 6.5 (<5.0-8.0); PROTEIN,URINE NEGATIVE (NEG-TRACE)
[2021-06-03 14:17] LABS: BACTERIA,URINE MANY /HPF (0-FEW)
[2021-06-03 14:18] LABS: RBC,URINE 0 /HPF (0-2)
[2021-06-03] MEDS ORDERED: CEPHALEXIN 250 MG CAPSULE. PO ONE (14:45)
[2021-06-03] MEDS ORDERED: CEPH500C PO (14:46)
[2021-06-03] MEDS ORDERED: ONDA4TAB7 PO (14:46)
[2021-06-03] MEDS ORDERED: DOCU-109 PO (14:46)
[2021-06-03] MEDS ORDERED: HYDR-2761 PO (14:46)
[2021-06-03 14:55] VITALS: BP 222/94
== END 2021-06-03 15:20 | disposition home or self-care (01) ==
LOC: ER 06:11
DX: N39.0 Urinary tract infection, site not specified (principal); I48.91 Unspecified atrial fibrillation; I10 Essential (primary) hypertension; I25.2 Old myocardial infarction; Z95.0 Presence of cardiac pacemaker
CPT/HCPCS: 36415; 74176; 76705; 80053; 81001; 83605; 83690; 84484; 85025; 87086; 93005; 96372; 99285; J2270; J2405; J7030; 87077